=== PATIENT | female | born 2000 | race Hispanic/Latino ===

== ENCOUNTER 2025-07-22 22:26 | Emergency (ER) | payer BC ==
[~2025-07-22] VITALS: Ht 165.1 cm; Wt 68.0 kg
[2025-07-22 22:27] VITALS: BP 132/72; PULSE 117; RESP 20; TEMP 98.7
--- NOTE | 2025-07-22 22:30 | NUR ---
UA CUP PROVIDED
--- NOTE | 2025-07-22 22:36 | NUR ---
UA COLLECTED AND SENT
[2025-07-22 22:47] LABS: APPEARANCE,URINE CLEAR (CLEAR); GLUCOSE, URINE (UA) NEGATIVE (NEGATIVE); LEUKOCYTE ESTERASE ,URINE NEGATIVE Leu/uL (NEGATIVE); NITRATE,URINE NEGATIVE (NEGATIVE); OCCULT BLOOD,URINE NEGATIVE (NEGATIVE)
[2025-07-22 22:49] LABS: HCG,QUALITATIVE URINE NEGATIVE (NEGATIVE)
[2025-07-22 22:50] LABS: ADD UA MICROSCOPIC NO
[2025-07-22] MEDS: CYCLOBENZAPRINE HCL 10 MG TABLET PO ONE (23:32)
--- NOTE | 2025-07-23 00:31 | HMCIMG ---
EXAM: CR Lumbar Spine, 3 views CLINICAL HISTORY: Pain. COMPARISON: None provided. FINDINGS: Lumbar alignment is within normal limits. Mild disc space narrowing at L4-L5 and L5-S1 levels, concerning a degenerative process. The remaining intervertebral disc spaces are maintained. Normal vertebral body heights. No acute fracture. Soft tissues are within normal limits. A component of mild constipation is present in the colon. IMPRESSION: No acute bony abnormality is evident. Mild disc space narrowing at L4-L5 and L5-S1 levels, concerning a degenerative process. /[place]
--- NOTE | 2025-07-23 00:36 | ERN ---
ED Note History of Present Illness Stated Complaint: LOW BACK PAIN Chief Complaint: Back Pain-No Injury Time Seen by MD: 22:57 Time Seen by Midlevel: 22:57 Dictation: The patient is a 24-year-old female with no past medical history who presents to the emergency department with complaints of low back pain onset yesterday. 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 Patient denies any urinary or fecal incontinence denies any numbness to lower extremities. Allergies: Coded Allergies: No Known Allergies (Unverified Allergy, Unknown, 07/22/25) Home Meds Active Scripts Cyclobenzaprine HCl (Flexeril) 10 Mg Tab, 10 MG PO TID for muscle sstiffness, # 14 TAB 0 Refills Prov:KAITLYN ROBERSON [employer]OPH[employer] TEACHER 07/23/25 Ibuprofen (Ibuprofen) 600 Mg Tablet, 600 MG PO Q6H PRN for PAIN, #30 TAB Prov:KAITLYN ROBERSON [employer] TEACHER 07/23/25 Past Medical History Past Medical History: No Pertinent History Surgical History: None LMP: Jul 09, 2025 RN Note Reviewed/Agreed w/PFSH: Yes Review of System Dictation Constitutional: Negative for fever,chills, and weight loss Eyes: Negative for injury, pain,redness, and discharge ENT: Negative for injury,pain or swelling Cardiovascular: Negative for chest pain, palpitations, and edema Respiratory: Negative for shortness of breath, cough, and wheezing, Abdomen/GI: Negative for abdominal pain, nausea, vomiting, diarrhea, and constipation Back: Positive for low back pain : Negative for injury, bleeding and discharge MS/Extremity: Negative for injury and deformity Skin: Negative for rash, and discoloration Neuro: Negative for headache, weakness, numbness, tingling, and seizure Psych: Negative for suicide ideation, homicidal ideation, and hallucinations Initial Vital Sign VS Vital Signs Date Time Temp Pulse Resp B/P (MAP) Pulse Ox O2 Delivery O2 Flow Rate FiO2 07/22/25 22:27 98.8 117 20 132/72 98 Room Air Physical Exam Dictation Vital Signs reviewed General Appearance: Alert, oriented x 3, no acute distress, well developed, no urished. Head and Face: non-traumatic. Eyes: PERRL, pink conjunctivas, eyelid no trauma, anterior chamber with arcus senilis. Ears: Pinnas intact and no signs of trauma or erythema ear canals clear and no discharge TM no erythema Nose: No discharge, no bleeding. Oropharynx: Mouth normal, tongue pink. pharynx clear,no erythema, tonsils no exudates, no abscesses noted, mucous me mbrane moist Neck: Supple, non-tender, no thyromegaly, no masses, no JVD, no bruits Breast:Deferred Chest:No tenderness, no crepitus, no paradoxical movement, no retractions Lungs:Clear, well-ventilated, symmetric, no rales, no wheezing, no rhonchi, no stridor, good breath sounds bilaterally Heart: Regular rate, regular rhythm, no murmur, no gallops Vascular: no peripheral edema, dorsalis pedis 3+ bilaterally Abdomen: Soft, positive bowel sounds, nondistended, no guarding, nontender, no rebound, no masses no hepatomegaly, no splenomegaly, no Cage's sign, no hernias. Rectal: Deferred Genital: Deferred Neurological: Normal speech, motor function intact, sensory function intact Musculoskeletal: Neck nontender, full range of motion, back nontender, full range of motion, Extremities: nontender, full range of motion Skin: Color pink, dry, no turgor, no rash, no lacerations, no abrasions, no contusions. Lymphatic: Deferred Results (Laboratory/Radiology) Laboratory/Radiology Laboratory Tests Test 07/22/25 22:36 Urine Color COLORLESS (YELLOW) Urine Appearance CLEAR (CLEAR) Urine pH 6.0 (5.0-8.0) Urine Specific [place] 1.007 (1.001-1.031) Urine Protein NEGATIVE mg/dL (NEGATIVE) Urine Glucose (UA) NEGATIVE mg/dL (NEGATIVE) Urine Ketones NEGATIVE mg/dL (NEGATIVE) Urine Occult Blood NEGATIVE (NEGATIVE) Urine Nitrate NEGATIVE (NEGATIVE) Urine Bilirubin NEGATIVE mg/dL (NEGATIVE) Urine Urobilinogen 0.2 mg/dL (0.2-1.0) Urine Leukocyte Esterase NEGATIVE Jojo/uL Urine HCG, Qualitative NEGATIVE (NEGATIVE) REASON: pain ORDERING PHYSICIAN: KAITLYN ROBERSON GEOPHYS[employer] TEACHER PROCEDURE: LUMB 2 3VW - LUMBAR SPINE 2-3VWS EXAM: CR Lumbar Spine, 3 views CLINICAL HISTORY: Pain. COMPARISON: None provided. FINDINGS: Lumbar alignment is within normal limits. Mild disc space narrowing at L4-L5 and L5-S1 levels, concerning a degenerative process. The remaining intervertebral disc spaces are maintained. Normal vertebral body heights. No acute fracture. Soft tissues are within normal limits. A component of mild constipation is present in the colon. IMPRESSION: No acute bony abnormality is evident. Mild disc space narrowing at L4-L5 and L5-S1 levels, concerning a degenerative process. /[place] Labs Reviewed?: Yes ED Course ED Course Orders Procedure Category Date Status Time Urinalysis Profile LAB 07/22/25 Complete 22:35 ,Urine Test LAB 07/22/25 Complete 22:35 Lumbar Spine 2-3vws RAD 07/22/25 Resulted 23:09 Cyclobenzaprine Hcl PHA 07/22/25 Complete (Cyclobenzaprine Hcl 23:30 Ketorolac PHA 07/22/25 Complete Tromethamine 30mg/Ml 23:30 Current Medications Medications (Trade) Dose Ordered Sig/Jarvis Route PRN Reason Start Time Stop Time Status Last Admin Dose Admin Cyclobenzaprine HCl (Cyclobenzaprine HCl) 10 mg ONCE ONCE PO 07/22/25 23:30 07/22/25 23:31 DC 07/22/25 23:32 Ketorolac Tromethamine (toRADol) 30 mg ONCE ONCE IM 07/22/25 23:30 07/22/25 23:31 DC 07/22/25 23:32 Vital Signs Date Time Temp Pulse Resp B/P (MAP) Pulse Ox O2 Delivery O2 Flow Rate FiO2 07/22/25 22:27 98.8 117 20 132/72 98 Room Air Medical Decision Making MDM The patient is a 24-year-old female with no past medical history who presents to the emergency department with complaints of low back pain onset yesterday. 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 Patient denies any urinary or fecal incontinence denies any numbness to lower extremities. X-rays showed no fractures. Urinalysis was unremarkable. Patient with no saddle paresthesia, no urinary or fecal incontinence. On physical exam patient is in no acute distress, ambulatory discharged patient follow up with PCP. Differential diagnosis: Lumbar fracture, lumbar strain, osteoarthritis of the lumbar spine Need for hospitalization: Patient does not meet criteria for hospitalization. There are no social concerns with this patient. DX & DISP Disposition: Discharge Departure Impression: Primary Impression: Low back strain Condition: Stable Scripts Cyclobenzaprine HCl (Flexeril) 10 Mg Tab 10 MG PO TID for muscle sstiffness, #14 TAB 0 Refills Prov: KAITLYN ROBERSON RILEY 07/23/25 Ibuprofen (Ibuprofen) 600 Mg Tablet 600 MG PO Q6H PRN for PAIN, #30 TAB Prov: ROBERSON,KAITLYN LIN 07/23/25 Additional Instructions: Your x-ray did not show any fractures. Please take your medications as prescribed. Follow up with the primary doctor in 1-2 days. If anything worsens please return to ER. FOLLOW-UP WITH PRIMARY CARE PROVIDER IN 1 TO 2 DAYS. TAKE MEDICATIONS DIRECTED HERE IN THE EMERGENCY ROOM. OKAY TO CONTINUE HOME MEDICATIONS UNLESS OTHERWISE DISCUSSED DURING YOUR VISIT IN THE EMERGENCY ROOM TODAY. RETURN TO YOUR NEAREST EMERGENCY ROOM IF SYMPTOMS WORSEN OR IF THERE IS NO IMPROVEMENT. CALL 911 IF YOU NEED IMMEDIATE ASSISTANCE. TAKE TYLENOL [id number] NEEDED AND IF NO CONTRAINDICATIONS ARE PRESENT. INCREASE ORAL HYDRATION. A WOUND CULTURE OR URINE CULTURE WAS ORDERED HERE IN THE EMERGENCY ROOM DEPARTMENT PLEASE FOLLOW-UP WITH PRIMARY CARE PROVIDER AND ADVISE THEM TO GET REPEAT PORTS FROM OUR FACILITY. IF YOU HAD ANY COLE WRAP/SPLINTS THAT WERE APPLIED HERE, PLEASE DO NOT REMOVE THEM UNTIL YOU SEE YOUR PRIMARY CARE OR SPECIALTY. Referrals: RAUL LOVELL DO (PCP) Time of Disposition: 00:40 I have reviewed the case, and I agree with, Diagnosis and Plan EDSON ROBERSONERIN LIN Jul 23, 2025 00:36
[2025-07-23] MEDS ORDERED: IBUP-1492 PO (00:43)
[2025-07-23] MEDS ORDERED: CYCL10TA16 PO (00:43)
[2025-07-23] MEDS: LIDOCAINE 4% ADH..PATCH TP ONE (01:09)
== END 2025-07-23 01:14 | disposition home or self-care (01) ==
LOC: EDH 22:26
DX: S39.012A Strain of muscle, fascia and tendon of lower back, initial encounter (principal); X50.1XXA Overexertion from prolonged static or awkward postures, initial encounter; Y93.89 Activity, other specified; Y92.89 Other specified places as the place of occurrence of the external cause; Y99.8 Other external cause status
CPT/HCPCS: 72100; 81003; 81025; 90471; 96372; 99284; J1885